=== PATIENT | female | born 1985 | race Asian ===

== ENCOUNTER → 2018-04-01 | Outpatient (CLI) | payer OTHER ==
[2018-04-01 21:08] LABS: THYROID STIMULATING HORMONE 0.765 uIU/ML (0.358-3.740)
[2018-04-01 21:08] LABS: FREE T4 0.99 NG/DL (0.76-1.46); PROLACTIN 7.8 NG/ML
== END ==
LOC: M WUC 16:15
DX: N92.0 Excessive and frequent menstruation with regular cycle (principal)
CPT/HCPCS: 84146

== ENCOUNTER → 2019-06-17 | Outpatient (CLI) | payer BC ==
[~2019-06-17] MED LIST: ISOVUE-370 76% 100ML VIAL (Q9967) As Ordered ONE
--- NOTE | 2019-06-17 14:14 | REP ---
Hysterosalpingogram: History: Infertility. Procedure: The endometrium is cannulated and contrast was injected by the referring boring machine operator horizontal. Fluoroscopic spot filming and fluoroscopy are provided. 0.2 minutes of fluoroscopy time was utilized. Findings: Endometrial cavity is unremarkable. Prompt symmetric filling of the isthmic and ampullary segments of the fallopian tubes are observed bilaterally. There is bilateral peritoneal spillage. Impression: Normal hysterosalpingogram. Bilateral tubal patency is documented. Electronically Signed by Madan Payne MD 06/17/2019 05:54 P
== END ==
LOC: M RADPRO 12:17
PROVIDERS: ATTEND Obstetrics & Gynecology
DX: N97.9 Female infertility, unspecified (principal)
CPT/HCPCS: 58340; 74740; Q9967

== ENCOUNTER → 2020-02-15 | Outpatient (CLI) | payer BC | LOC: M WUC 08:04 | PROVIDERS: ATTEND Obstetrics & Gynecology | DX: N97.0 Female infertility associated with anovulation (principal) ==

== ENCOUNTER → 2020-03-29 | Outpatient (CLI) | payer BC | LOC: M PLALAB 09:28 | PROVIDERS: ATTEND Specialist | DX: O20.0 Threatened abortion (principal) ==

== ENCOUNTER → 2020-03-31 | Outpatient (CLI) | payer BC | LOC: M PLALAB 08:30 | PROVIDERS: ATTEND Specialist | DX: Z32.00 Encounter for pregnancy test, result unknown (principal) ==

== ENCOUNTER → 2020-04-08 | Outpatient (CLI) | payer BC ==
--- NOTE | 2020-04-16 15:08 | SLEEPHOME ---
DATE: 04/08/2020 ORDERED BY: Karla Hayes Diagnostic home sleep testing was performed due to concern for the obstructive sleep apnea syndrome in this patient with a history of snoring. For testing, a nocturnal T3 respiratory monitoring device was used. Continuous record was made of pulse, oxygen saturation, air flow, chest and abdominal strain, and body position. Nine hours and 59 minutes of data were reviewed. There was 6 hours and 51 minutes marked as time in bed. During the interval marked time in bed, there were 21 respiratory events identified of 10 seconds in duration or greater for a respiratory event index of 3.1. The events seen were more frequent in the supine posture. They were primarily obstructive hypopneas. Baseline pulse rate 78 beats per minute. Pulse rate ranged 57 to 114. Baseline saturation was 95%. Saturations briefly fell to 87%. Testing was performed in both the supine and non-supine positions. IMPRESSION: Borderline diagnostic home sleep test with respiratory patterning and a respiratory event index of 3.1. RECOMMENDATIONS: Sleep position retraining for avoidance of the supine posture would seem prudent based on these findings. Should the patient experience persistence of symptoms, referral for formal in-laboratory sleep testing may be more sensitive for identifying mild obstructive sleep apnea syndrome. MTDD
== END ==
LOC: M SLEEP HO 11:31
PROVIDERS: ATTEND Nurse Practitioner Family
DX: R06.83 Snoring (principal)

== ENCOUNTER → 2020-04-14 | Outpatient (CLI) | payer BC | LOC: M PLALAB 10:52 | PROVIDERS: ATTEND Specialist | DX: Z34.82 Encounter for supervision of other normal pregnancy, second trimester (principal) ==

== ENCOUNTER → 2020-04-20 | Outpatient (CLI) | payer BC | LOC: M PLALAB 14:33 | PROVIDERS: ATTEND Specialist | DX: Z34.01 Encounter for supervision of normal first pregnancy, first trimester (principal); Z3A.00 Weeks of gestation of pregnancy not specified ==

== ENCOUNTER → 2020-05-18 | Outpatient (REF) | payer BC | LOC: M PLALAB 08:37 | PROVIDERS: ATTEND Advanced Practice Midwife | DX: O99.211 Obesity complicating pregnancy, first trimester (principal) ==

== ENCOUNTER → 2020-05-25 | Outpatient (CLI) | payer BC | LOC: M LAB 08:03 | PROVIDERS: ATTEND Advanced Practice Midwife | DX: O99.810 Abnormal glucose complicating pregnancy (principal) ==

== ENCOUNTER → 2020-06-29 | Outpatient (CLI) | payer BC ==
--- NOTE | 2020-06-29 10:21 | REP ---
INDICATION: ANATOMY COMPARISON: None. TECHNIQUE: Transabdominal obstetrical ultrasound with color Doppler evaluation. FINDINGS: Examination demonstrates a single live intrauterine in transverse presentation. motion is identified by technologist. Placenta is noted posterior and grade 1 without evidence for placenta previa or abruption. Amniotic fluid volume is normal. Cervix measures 3.1 cm in length and appears closed.. Gestational age by LMP 19 weeks 2 days with BHAVYA 11/21/2020. Gestational age by current measurements 20 weeks 1 day with BHAVYA 11/15/2020. FHR equals 143 beats per minute. BPD: 4.7 cm 20 weeks 2 days HC: 17.7 cm 20 weeks 1 day AC: 14.2 cm 19 weeks 4 days FL: 3.3 cm 20 weeks 2 days HL: 3.2 cm 20 weeks 6 days HC/AC: 1.24 Estimated weight 323 grams (82ndpercentile). Anatomical assessment demonstrates normal cranium, cerebral ventricles, cerebellum/posterior fossa, cisterna magna, facial features, diaphragm/stomach, abdominal wall, kidneys/bladder, spine, extremities and three-vessel cord. 3 mm choroid plexus cyst identified. Incomplete evaluation of the heart and ventricular outflow tracts noted. IMPRESSION: Single live intrauterine in transverse lie demonstrating appropriate estimated weight and growth. Anatomical limitations as noted above warrant re-evaluation and follow-up. <Electronically signed by Hima Al > 06/29/20 [id number]
== END ==
LOC: M WHC 08:44
PROVIDERS: ATTEND Advanced Practice Midwife
DX: Z3A.16 16 weeks gestation of pregnancy (principal); Z34.82 Encounter for supervision of other normal pregnancy, second trimester

== ENCOUNTER → 2020-07-20 | Outpatient (CLI) | payer BC ==
--- NOTE | 2020-07-20 09:51 | REP ---
INDICATION: F/U ANATOMY. COMPARISON: Obstetric ultrasound dated 06/29/2020. TECHNIQUE: Transabdominal ultrasound of the gravid uterus. FINDINGS: On the prior study there was a 3 mm choroid plexus cyst. Additionally, the four-chamber view of the heart and the cardiac right and left ventricular outflow tracts could not be optimally demonstrated. On the study today there is a single intrauterine gestation in the breech presentation. The placenta is posterior with grade 0 maturity. There is no placenta previa. There is a three-vessel umbilical cord. The cervix measures 3.5 cm length. heart rate is 144 beats per minute. The amniotic fluid volume subjectively is normal. Gestational age by the ultrasound today is 22 weeks 2 days. The BHAVYA is 11/21/2020. Gestational age by the 1st ultrasound is 22 weeks 2 days with an BHAVYA of 11/21/2020. Gestational age by LMP is 22 weeks 2 days with an BHAVYA of 11/21/2020. weight is 4- 7 g, 1 lb-1 oz. This is the 40th percentile for 22 weeks 2 days. The four-chamber view of the heart is adequately demonstrated and is unremarkable today. The left ventricular cardiac outflow tract is adequately demonstrated and unremarkable today. The right ventricular cardiac outflow tract again could not be optimally demonstrated. There are no images of the choroid plexus on the study today. The remainder of the anatomy was previously unremarkable and is not repeated. IMPRESSION: Four-chamber view of the heart and left ventricular cardiac outflow tracts are adequately demonstrated and unremarkable. The cardiac right ventricular outflow tract and choroid plexus are not optimally demonstrated today. Follow-up study of these structures might be considered. <Electronically signed by Vamshi Mccormick > 07/20/20 [id number]
== END ==
LOC: M WHC 06:31
PROVIDERS: ATTEND Obstetrics & Gynecology
DX: O99.212 Obesity complicating pregnancy, second trimester (principal); Z3A.22 22 weeks gestation of pregnancy

== ENCOUNTER → 2020-08-24 | Outpatient (CLI) | payer BC ==
[2020-08-24 07:32] LABS: HEMATOCRIT 38.3 % (36.0-47.0); HEMOGLOBIN 12.2 g/dl (12.0-15.5); MEAN CORPUSCULAR HEMOGLOBIN 28.2 pg (27.0-33.0); MEAN CORPUSCULAR HGB CONC 31.9 g/dl (32.0-36.5); MEAN CORPUSCULAR VOLUME 88.7 fl (80.0-96.0); PLATELET COUNT, AUTOMATED 261 10^3/uL (150-450); RED BLOOD COUNT 4.32 10^6/uL (4.00-5.40); WHITE BLOOD COUNT 8.4 10^3/uL (4.0-10.0)
== END ==
LOC: M LAB 06:46
PROVIDERS: ATTEND Advanced Practice Midwife
DX: O99.212 Obesity complicating pregnancy, second trimester (principal)

== ENCOUNTER → 2020-08-30 | Outpatient (CLI) | payer BC ==
--- NOTE | 2020-08-30 08:24 | REP ---
INDICATION: F/U ANATOMY COMPARISON: None. TECHNIQUE: Transabdominal obstetrical ultrasound with color Doppler evaluation. FINDINGS: Examination demonstrates a single live intrauterine in cephalic presentation. motion is identified by technologist. Placenta is noted posterior and grade 1 without evidence for placenta previa or abruption. Amniotic fluid volume is normal. Cervix measures 3.1 cm in length and appears closed.. Gestational age by LMP 28 weeks 1 day with BHAVYA 11/21/2020. Gestational age by current measurements 29 weeks 0 days with BHAVYA 11/15/2020. FHR equals 161 beats per minute. NADINE: 12.4 cm Estimated weight 1293 grams (66thpercentile). Anatomical assessment demonstrates normal structures including cranium, choroid plexus, facial profile, right cardiac ventricular outflow tract, stomach, kidneys/bladder, and three-vessel cord. IMPRESSION: Single live intrauterine in cephalic presentation demonstrating appropriate estimated weight and growth. In conjunction with prior examination anatomical assessment is complete and normal. No obvious choroid plexus cyst identified on current exam. <Electronically signed by Hima Al > 08/30/20 [id number]
== END ==
LOC: M WHC 07:02
PROVIDERS: ATTEND Advanced Practice Midwife
DX: O99.212 Obesity complicating pregnancy, second trimester (principal); E66.9 Obesity, unspecified; Z3A.28 28 weeks gestation of pregnancy

== ENCOUNTER → 2020-09-30 | Outpatient (CLI) | payer BC ==
--- NOTE | 2020-09-30 10:47 | REP ---
INDICATION: GESTATIONAL DIABETES,GROWTH. COMPARISON: 08/30/2020. TECHNIQUE: Real-time sonographic evaluation of the gravid uterus performed. FINDINGS: Estimated gestational age is32 weeks 4 days, EDC 11/21/2020. Today's measurements indicate appropriate growth. Presentation: Cephalic Placenta posterior, grade 2, without evidence of placenta previa. heart rate is recorded at 156 beats per minute. Amniotic fluid is subjectively normal. NADINE 12.2, normal range 8.4-24.4. Closed cervical length is measured at 3.4 cm. Biometry chart: BPD: 81 mm, 32 weeks 4 days, 50th percentile. HC: 295 mm, 32 weeks 4 days, 50th percentile AC: 284 mm, 32 weeks 3 days, 48th percentile Femur length: 64 mm, 33 weeks 0 days, 57th percentile HC to AC ratio: 1.04, normal range 0.95-1.14. Estimated weight: 2020g, 42nd percentile. The stomach, kidneys, bladder, spine and three-vessel cord are visualized and are grossly unremarkable. IMPRESSION: Viable single intrauterine gestation as above. <Electronically signed by Vamshi Alcantar > 09/30/20 [id number]
== END ==
LOC: M WHC 08:17
PROVIDERS: ATTEND Advanced Practice Midwife
DX: O24.415 Gestational diabetes mellitus in pregnancy, controlled by oral hypoglycemic drugs (principal); Z3A.32 32 weeks gestation of pregnancy

== ENCOUNTER → 2020-10-21 | Outpatient (REF) | payer BC | LOC: M SFHCWAGY 16:48 | PROVIDERS: ATTEND Advanced Practice Midwife | DX: O99.213 Obesity complicating pregnancy, third trimester (principal) ==

== ENCOUNTER → 2020-10-28 | Outpatient (CLI) | payer BC ==
--- NOTE | 2020-10-28 08:46 | REP ---
INDICATION: GESTATIONAL DIABETES,GROWTH. Expected gestational age based on known BHAVYA November 21, 2020 36 weeks 4 days. COMPARISON: Comparison study September 30, 2020.. TECHNIQUE: Transabdominal obstetric sonography. FINDINGS: Scanning through the gravid uterus demonstrates a viable single intrauterine gestation in cephalic lie. motion is observed and heart rate is recorded at 140 beats per minute. A posterior placenta is seen, grade 2, without evidence of placenta previa. Closed cervical length is measured at 3.7 cm transabdominally. No extrauterine abnormality is observed. Amniotic fluid is subjectively normal. NADINE normal 10.1 cm.. Biometry chart: BPD 8.8 cm, 35 weeks 5 days Head circumference 31.7 cm, 35 weeks 4 days Abdominal circumference 33.7 cm, 37 weeks 4 days Femur length 7.0 cm, 36 weeks 0 days Humeral length 6.2 cm, 35 weeks 6 days HC AC ratio normal 0.94 Cephalic index normal 0.79 Estimated weight 3000 at 31 g, 6 lb 10 oz, 59th percentile for 36 weeks 4 days IMPRESSION: Viable single intrauterine gestation at 36 weeks 1 days by today's composite sonographic criteria. BHAVYA by today's sonography BHAVYA by today's sonography November 24, 2020.. No complication identified. Expected gestational age estimate based on prior sonography 36 weeks 4 days. BHAVYA by prior sonography November 21, 2020. Appropriate interval growth. <Electronically signed by Troy Payne > 10/28/20 [id number]
== END ==
LOC: M WHC 06:20
PROVIDERS: ATTEND Advanced Practice Midwife
DX: O24.415 Gestational diabetes mellitus in pregnancy, controlled by oral hypoglycemic drugs (principal); Z79.84 Long term (current) use of oral hypoglycemic drugs; Z3A.36 36 weeks gestation of pregnancy

== ENCOUNTER 2020-11-04 12:59 | Outpatient (CLI) | payer BC ==
[~2020-11-04] VITALS: Ht 157.5 cm; Wt 102.6 kg
[2020-11-04 13:19] VITALS: BP 131/83
[2020-11-04] MEDS ORDERED: METF850T4 PO (13:34)
[2020-11-04] MEDS ORDERED: PRENTAB9 PO (13:35)
[2020-11-04] MEDS ORDERED: VITMTA PO (13:36)
--- NOTE | 2020-11-04 14:58 | IPNPDOC ---
Text Note Date of Service The patient was seen on 11/04/20. NOTE Triage Note Selina is a 35yo with SIUP at 37w4d presenting from clinic for isolated FHR decel on routine NST done for A2GDM (takes metformin). /PMhx also significant for PCOS and obesity. She feels well today, no complaints. Robust movement. No regular ctx/LOF/vaginal bleeding. Vitals wnl, afebrile Gen: WDWN, resting comfortably in bed Abdomen: soft, gravid, NTTP Cat I FHRT with bl 125, +accels, -decels, mod renato for over 1 hour [place]: no regular ctx TAUS: SIUP with cephalic presentation, posterior placenta, MVP 6.4cm, +FCA and +FM Assessment: Selina is a 35yo with SIUP at 37w4d having isolated FHR decel on routine testing today with NO recurrence on 1 hour of monitoring. MVP 6.4cm. Vitals wnl. Plan: -Safe for discharge home -Patient has IOL scheduled Wednesday 11/08 -Discussed return precautions Robyn Banks MD VS,Alec, I+O VSAlec I+O Vital Signs Date Time Temp Pulse Resp B/P (MAP) Pulse Ox O2 Delivery O2 Flow Rate FiO2 11/04/20 13:19 93 131/83 (99) 11/04/20 13:18 97.8 18 Robyn Banks MD Nov 04, 2020 14:58
== END 2020-11-04 15:00 | disposition home or self-care (01) ==
LOC: M LDO 12:59
PROVIDERS: ATTEND Obstetrics & Gynecology
DX: O26.893 Other specified pregnancy related conditions, third trimester (principal); Z3A.37 37 weeks gestation of pregnancy
CPT/HCPCS: 59025; 76815; G0378; G0463

== ENCOUNTER 2020-11-08 13:30 | Inpatient (IN) | payer BC ==
[~2020-11-08] VITALS: Ht 157.5 cm; Wt 102.0 kg
[2020-11-08] VITALS (9 sets, daily range): BP systolic 123–140; BP diastolic 75–88
[~2020-11-08 13:30] MED LIST changes: -ISOVUE-370 76% 100ML VIAL (Q9967) As Ordered ONE; +METF850T4 PO; +PRENTAB9 PO; +VITMTA PO
[2020-11-08] MEDS ORDERED: LIDOCAINE 1% MDV 20ML VIAL INFIL PRN (14:55)
[2020-11-08] MEDS ORDERED: CARBOPROST TROMETHAMINE 250 MCG/ML AMP IM PRN (14:55)
[2020-11-08] MEDS ORDERED: TRANEXAMIC ACID INJection 1,000 MG in NS 100 ML IV PRN (14:55)
[2020-11-08] MEDS ORDERED: METHYLERGONOVINE MALEATE 0.2 MG/ML VIAL (J2210) IM PRN (14:55)
[2020-11-08] MEDS ORDERED: OXYTOCIN DRIP 30 UNITS in IV 1 EA IV PRN (14:55)
[2020-11-08 14:56] LABS: HEMATOCRIT 38.6 % (36.0-47.0); HEMOGLOBIN 13.1 g/dl (12.0-15.5); MEAN CORPUSCULAR HEMOGLOBIN 29.8 pg (27.0-33.0); MEAN CORPUSCULAR HGB CONC 33.9 g/dl (32.0-36.5); MEAN CORPUSCULAR VOLUME 87.7 fl (80.0-96.0); PLATELET COUNT, AUTOMATED 227 10^3/uL (150-450); WHITE BLOOD COUNT 8.3 10^3/uL (4.0-10.0)
[2020-11-08] MEDS ORDERED: miSOPROStol 50MCG 1/2 TABLET PO ONE ×2 (15:25→19:45)
[2020-11-08] MEDS ORDERED: OXYTOCIN DRIP 30 UNITS in IV 1 EA IV SCH (21:15)
[2020-11-09] VITALS (49 sets, daily range): BP systolic 102–159; BP diastolic 56–96
[2020-11-09] MEDS: LR 1,000 ML IV SCH ×5 (06:40→21:34)
[2020-11-09 08:21] LABS: HEMATOCRIT 40.8 % (36.0-47.0); HEMOGLOBIN 13.6 g/dl (12.0-15.5); MEAN CORPUSCULAR HEMOGLOBIN 29.1 pg (27.0-33.0); MEAN CORPUSCULAR HGB CONC 33.3 g/dl (32.0-36.5); MEAN CORPUSCULAR VOLUME 87.4 fl (80.0-96.0); PLATELET COUNT, AUTOMATED 208 10^3/uL (150-450); RED BLOOD COUNT 4.67 10^6/uL (4.00-5.40); WHITE BLOOD COUNT 11.9 10^3/uL (4.0-10.0)
[2020-11-09 08:48] LABS: ALBUMIN 2.7 GM/DL (3.2-5.2); ALT/SGPT 15 U/L (12-78); BILIRUBIN,TOTAL 0.2 MG/DL (0.2-1.0); BLOOD UREA NITROGEN 9 MG/DL (7-18); CALCIUM LEVEL 8.7 MG/DL (8.5-10.1); CARBON DIOXIDE LEVEL 24 MEQ/L (21-32); CHLORIDE LEVEL 107 MEQ/L (98-107); GLOMERULAR FILTRATION RATE > 60.0 (>60); GLUCOSE, FASTING 87 MG/DL (70-100); POTASSIUM SERUM 4.3 MEQ/L (3.5-5.1); SODIUM LEVEL 137 MEQ/L (136-145); TOTAL PROTEIN 5.7 GM/DL (6.4-8.2)
[2020-11-09] MEDS ORDERED: BUTORPHANOL 2 MG/ML INJ (J0595) IV PRN (08:50)
[2020-11-09] MEDS ORDERED: PROMETHAZINE INJ 25 MG/ML VIAL (J2550) IV ONE (09:00)
--- NOTE | 2020-11-09 09:02 | HPE ---
HISTORY AND PHYSICAL DATE OF ADMISSION: 11/08/2020 HISTORY OF PRESENT ILLNESS: Selina is a 35-year-old 1 para 0 at 38 and 1/7th weeks gestation, EDC of 11/21/20 based on first trimester ultrasound. Presents to Labor and Delivery today for induction of labor due to A2 gestational diabetes. She denies regular painful contractions, vaginal bleeding and leakage of fluid. The fetus has been active. care was initiated at [facility] in the first trimester. The course was complicated by obesity, A2 gestational diabetes and polycystic ovarian syndrome. OBSTETRIC HISTORY: Primigravida. OBSTETRIC LABS: A positive, antibody screen negative, rubella immune, HIV negative, RPR nonreactive, hepatitis B surface antigen negative, hepatitis C antibody negative. Urine culture: No growth. Gonorrhea and chlamydia negative. She underwent an early gestational diabetic screening on May 18, 2020 with an abnormal result of 133. She did undergo a three hour glucose tolerance test at that time and it was normal. Her repeat glucose tolerance test on 08/24/20 was abnormal. Fasting 88, 1 hour 184, 2 hour 161, 3 hour 62 and her GBS is negative. PAST MEDICAL HISTORY: Childhood varicella, polycystic ovarian syndrome. PAST SURGICAL HISTORY: None. FAMILY HISTORY: Prostate cancer, hypertension, cerebrovascular accident, myocardial infarction and hypertension. SOCIAL HISTORY: The patient works as a registered nurse. The father of the baby is at bedside and he is supportive. She is a nonsmoker. She denies alcohol and drug use. No history of any sexually transmitted infections. She denies a history of abuse, physical, sexual and emotional. ALLERGIES: No known drug allergies. CURRENT MEDICATIONS: 1. vitamin. 2. Metformin 850 mg daily in the a.m. OBJECTIVE: Temperature 98.5, pulse 92, respirations 18, BP 136/81. heart rate is 140 with moderate variability, positive accelerations, negative decelerations. There is no pattern of contractions. Her abdomen is gravid, cephalic presentation. Estimated weight 3200 grams. Sterile vaginal exam: 1.5 cm dilated, 75% effaced, ballottable station. ASSESSMENT: Intrauterine at 38 and 1/7th weeks. heart rate is Category 1, A2 gestational diabetes. PLAN: Admit the patient to Labor and Delivery, routine laboratories, out of bed ad karla, regular diet at this time, consistent carbohydrates, will start with Misoprostol 50 mcg p.o. x1. Will reassess following that time. Will likely start IV Pitocin for labor induction. The patient is considering an epidural for her labor when he is uncomfortable. I reviewed risks, benefits and alternatives. She and her partner's questions have all been answered. She has been verbally consented for emergency surgery and blood products if they are necessary. I do anticipate cervical ripening and an active labor.
--- NOTE | 2020-11-09 10:15 | IPNPDOC ---
Text Note Date of Service The patient was seen on 11/09/20. NOTE Intrapartum Note Selina is a 35yo with SIUP at 38w2d undergoing IOL for A2GDM on metformin. PNC/PMhx otherwise only significant for obesity and PCOS. I assumed care of her at 0730 this morning. She had cervical ripening with cytotec and pitocin was started at midnight last night. She had AROM this morning by covering CNM when 3cm dilated, clear fluid noted. Pitocin has been at 18mu. This morning she had a few mild range bp's so CBC repeated and CMP done which were unchanged/normal. She recently received stadol/phenergan IV for increasing discomfort and also recently started to develop a Cat II FHRT with recurrent FHR decels. I was asked to evaluate patient for internal monitors to determine timing of FHR decels with ctx. SCE 5/80/-2. IUPC and FSE were placed and then a FHR decel occurred down to 60's that recovered with repositioning. However, there continues to be early FHR decels down to 100's/90's. I asked the nurse to call anesthesia team to make them aware that we may need to proceed to OR if there is a recurrent prolonged FHR decel I discussed with the patient and her the situation. Hopefully if there is indication for section in the future, she could have regional anesthesia to avoid need for general, but will depend on status. Will continue to closely monitor. MD ANDRE Spain,Alec, I+O VSAlec I+O Laboratory Tests 11/08/20 14:40 11/09/20 08:08 Vital Signs Date Time Temp Pulse Resp B/P (MAP) Pulse Ox O2 Delivery O2 Flow Rate FiO2 11/09/20 09:27 20 Room Air 11/09/20 07:41 69 154/96 (115) 11/09/20 07:13 97.5 11/08/20 13:45 97 Robyn Banks MD Nov 09, 2020 10:15
[2020-11-09] MEDS ORDERED: FENTANYL 2MCG/ML ROPIVACAINE 0.2% IN 0.9% NACL 100ML IVBAG As Ordered ONE (12:33)
[2020-11-09] MEDS ORDERED: ePHEDrine SULFATE 25 MG/5 ML(5MG/ML) SYRINGE As Ordered ONE (14:20)
[2020-11-09] MEDS ORDERED: diphenhydrAMINE 50MG/ML VIAL (J1200) IV PRN ×3 (14:25→17:40)
[2020-11-09] MEDS ORDERED: LACTATED RINGER'S 1000 ML IV PRN (14:25)
[2020-11-09] MEDS ORDERED: NALOXONE INJ 0.4MG/1ML VIAL (J2310 PER 1MG) IV PRN ×3 (14:25→16:00)
[2020-11-09] MEDS ORDERED: ONDANSETRON 4MG/2ML VIAL IV PRN ×4 (14:25→17:40)
[2020-11-09] MEDS ORDERED: REFRIGERATOR IV KEYS XX PRN (14:25)
[2020-11-09] MEDS ORDERED: EPIDURAL/PCA KEYS XX PRN (14:25)
[2020-11-09] MEDS ORDERED: EPIDURAL COMMENT XX SCH (14:25)
[2020-11-09] MEDS: ePHEDrine SULFATE 25 MG/5 ML(5MG/ML) SYRINGE IV PRN ×3 (14:29→14:47)
[2020-11-09] MEDS: FENTANYL/ROPIVACAINE/NACL BAG 100 ML EPIDURAL SCH (14:31)
[2020-11-09] MEDS ORDERED: BICITRA 30ML SOLN UDC As Ordered ONE (15:10)
[2020-11-09] MEDS ORDERED: ceFAZolin 2 GM/D5W 50 ML IV BAG (J0690 PER 500MG) As Ordered ONE (15:11)
[2020-11-09] MEDS ORDERED: BICITRA 30ML SOLN UDC PO ONE (15:15)
[2020-11-09] MEDS ORDERED: ceFAZolin SOD 2 GM in IV 1 EA IV ONE (15:15)
[2020-11-09] MEDS ORDERED: AZITHROMYCIN INJ 500 MG, VIAL MATE ADAPTER 1 EACH in NS 250 ML IV ONE (15:15)
[2020-11-09] MEDS ORDERED: MORPHINE PRES-FREE INJ 10 MG/10 ML VIAL (J2274) As Ordered ONE (15:19)
--- NOTE | 2020-11-09 15:19 | IPNPDOC ---
Text Note Date of Service The patient was seen on 11/09/20. NOTE Decision for section Patient comfortable with epidural. Pitocin was turned off earlier for difficulty monitoring during epidural administration and since that time patient has had continued contractions that have spaced out, but occuring now with them are late decelerations. Variability is overall moderate and there are accelerations, but given that patient's cervix is still 6/80/-2 with no further progress in labor and she has a Cat II FHRT, I have counseled her regarding dx of NRFHT remote from delivery and she is accepting of plan for PLTCS. We discussed all r/b/a in detail and signed consent form for PLTCS and blood transfusion. Will proceed to OR when team is ready Azithromycin 500mg IV x1 and Anceph 2g IV x1 for prophylaxis Bicitra Consent forms placed in chart Robyn Banks MD VS,Alec, I+O VSAlec I+O Laboratory Tests 11/09/20 08:08 Vital Signs Date Time Temp Pulse Resp B/P (MAP) Pulse Ox O2 Delivery O2 Flow Rate FiO2 11/09/20 13:39 96 18 112/66 (81) 11/09/20 11:28 100 Room Air 11/09/20 10:49 97.7 Robyn Banks MD Nov 09, 2020 15:19
[2020-11-09] MEDS ORDERED: OXYTOCIN 30 UNITS IN 0.9% NaCl 500ML IV BAG (J2590) As Ordered ONE ×2 (15:20→16:59)
[2020-11-09] MEDS ORDERED: SODIUM BICARBONATE 8.4% INJ 50MEQ 50 ML VIAL As Ordered ONE (15:22)
[2020-11-09] MEDS ORDERED: LIDOCAINE 2% W/EPINEPHRINE 20ML VIAL **PRES FREE As Ordered ONE (15:22)
[2020-11-09] MEDS ORDERED: ONDANSETRON 4MG/2ML VIAL As Ordered ONE (15:43)
[2020-11-09] MEDS ORDERED: KETOROLAC 60MG 2ML VIAL As Ordered ONE (15:43)
[2020-11-09] MEDS ORDERED: dexameTHASONE 4 MG/ML 1ML VIAL (J1100 PER 1MG) As Ordered ONE (15:43)
[2020-11-09] MEDS ORDERED: METHYLERGONOVINE MALEATE 0.2 MG/ML VIAL (J2210) IM PRN (15:55)
[2020-11-09] MEDS ORDERED: OXYTOCIN DRIP 30 UNITS in IV 1 EA IV PRN (15:55)
[2020-11-09] MEDS ORDERED: CARBOPROST TROMETHAMINE 250 MCG/ML AMP IM PRN (15:55)
[2020-11-09] MEDS ORDERED: METOCLOPRAMIDE INJ 10MG/2ML VIAL (J2765 PER 1) IV PRN ×2 (16:00→17:40)
[2020-11-09] MEDS ORDERED: NALBUPHINE HCL 10 MG/ML AMP (J2300) IV PRN ×2 (16:00→17:40)
[2020-11-09] MEDS ORDERED: TRANEXAMIC ACID INJection 1,000 MG in NS 100 ML IV PRN (16:00)
[2020-11-09 16:07] LABS: CORD GAS ABE A -6.9; CORD GAS HCO3 A 20.3 MEQ/L; CORD GAS PCO2 A 46.6 mmHg; CORD GAS PH A 7.256 UNITS; CORD GAS PO2 A 12.8 mmHg; CORD GAS SBC A 17.3 MEQ/L; CORD GAS TCO2 A 21.7 MEQ/L
[2020-11-09 16:10] LABS: CORD GAS ABE V -4.7; CORD GAS HCO3 V 20.4 MEQ/L; CORD GAS O2 SAT V 72.9 %; CORD GAS PCO2 V 37.8 mmHg; CORD GAS PH V 7.349 UNITS; CORD GAS PO2 V 29.6 mmHg; CORD GAS SBC V 20.1 MEQ/L; CORD GAS TCO2 V 21.5 MEQ/L
[2020-11-09] MEDS ORDERED: OXYTOCIN DRIP 30 UNITS in IV 1 EA IV SCH (17:09)
[2020-11-09] MEDS ORDERED: MEASLES,MUMPS,RUBELLA VACCINE INJ (MMR-II) (90707) SC SCH (17:10)
[2020-11-09] MEDS ORDERED: RHOGAM 300 MCG (1500 IU) INJ (J2790) IM SCH (17:10)
[2020-11-09] MEDS ORDERED: SIMETHICONE 80MG CHEW TAB PO PRN (17:10)
[2020-11-09] MEDS ORDERED: PERCOCET 5MG/325MG TAB PO PRN ×3 (17:10→17:40)
[2020-11-09] MEDS ORDERED: MEPERIDINE INJ 25 MG/ML VIAL (J2175) IV PRN (17:40)
[2020-11-09] MEDS ORDERED: NORCO, ANEXSIA 5/325MG TABLET (HYDROcodone/ACETAMINOPHEN) PO PRN (17:40)
[2020-11-09] MEDS ORDERED: PROMETHAZINE INJ 25 MG/ML VIAL (J2550) IV PRN (17:40)
[2020-11-09] MEDS ORDERED: HYDROMORPHONE HCL 0.5 MG/ 0.5 ML SYRINGE (J1170 PER 1) IV PRN (17:40)
[2020-11-09] MEDS ORDERED: LR 1,000 ML IV SCH (17:40)
[2020-11-09] MEDS ORDERED: oxyCODONE 5MG TAB PO PRN (17:40)
[2020-11-09] MEDS ORDERED: MORPHINE 2 MG/ML 1ML VIAL (J2270) IV PRN (17:40)
[2020-11-09] MEDS ORDERED: fentaNYL 100 MCG/2 ML INJECTION (J3010) IV PRN (17:40)
[2020-11-09] MEDS ORDERED: KETOROLAC 30 MG/ML 1ML VIAL IV PRN (17:40)
[2020-11-09] MEDS: DOCUSATE SODIUM 100MG CAPSULE PO SCH (21:00)
--- NOTE | 2020-11-09 21:40 | RO ---
OPERATIVE NOTE DATE OF OPERATION: 11/09/2020 PREOPERATIVE DIAGNOSIS: 1. Induction of labor secondary to A2 GDM on metformin. 2. Obesity, BMI of 37. 3. PCOS. 4. Nonreassuring heart tracing, remote from delivery. POSTOPERATIVE DIAGNOSIS: 1. Induction of labor secondary to A2 GDM on metformin. 2. Obesity, BMI of 37. 3. PCOS. 4. Nonreassuring heart tracing, remote from delivery. PROCEDURE: Primary low transverse section. SURGEON: Robyn Banks MD RESIDENTIAL SUBSTANCE ABUSE COUNSELOR: technology specialist, Kori Ramos ANESTHESIA: epidural INDICATION FOR OPERATION: Selina is a 35-year-old, G1, now P 1-0-0-1, who was admitted at 38 weeks for an induction of labor secondary to A2 GDM, treated with metformin. She underwent induction and augmentation first with Cytotec, then with Pitocin and had AROM. However, she developed a persistent category 2 heart rate tracing remote from delivery at 6cm dilation. MATERIAL FORWARDED TO THE LAB FOR EXAMINATION: Placenta and cord gases, pH arterial 7.256, base excess negative 6.9, venous pH 7.349, base excess negative 4.7. DESCRIPTION OF FINDINGS: Female in cephalic presentation, Apgars 7 and 9, weight 2910 gm or 6 lb, 7 oz. Normal appearing uterus, fallopian tubes and ovaries. INFECTION CLASSIFICATION: 2. ESTIMATED BLOOD LOSS: 700 mL URINE OUTPUT: 150 mL of yellow clear urine. IV FLUIDS: 650 mL of lactated Ringer's. DESCRIPTION OF PROCEDURE: After obtaining informed consent, the patient was taken to the operating room. She had received an epidural previously. Lucero catheter was already in place. Bilateral sequential compression devices were placed. She was prepped and draped in normal sterile fashion in the dorsal supine position with a left lateral tilt. She received 500 mg of IV azithromycin and 2 grams of IV Ancef prophylactically. A timeout was performed to confirm patient name, date of , procedure and indications and the team was in agreement. Epidural anesthesia was found to be adequate using an Allis clamp. A Pfannenstiel skin incision was made with the scalpel and carried through to the underlying layer of fascia. The fascia was incised in the midline and the incision was extended laterally with Tovar scissors. Superior and inferior aspects of the fascial incision were grasped with Katty clamps, elevated and the underlying rectus muscles were dissected off bluntly and sharply. The peritoneum was entered digitally and the rectus muscles were in the midline. The peritoneal incision was extended superiorly and inferiorly with good visualization of the bladder. Mobius retractor was then inserted. Vesicouterine peritoneum was identified, grasped with pickups and entered sharply with the Metzenbaum scissors. The incision was extended laterally and the bladder flap created digitally. The lower uterine segment was then scored in a transverse fashion with a scalpel. The uterus was entered bluntly and the incision was extended with traction with clear fluid noted. The 's head was elevated at the level of the incision. Fundal pressure was applied. The head was delivered atraumatically in the OA position. Anterior shoulder, posterior shoulder and corpus were delivered without difficulty. The nose and mouth were suctioned with bulb suction. Cord was clamped x2 and cut. Infant was handed off to the awaiting nursing team. Cord gases were obtained. The placenta was removed with uterine massage and traction on the umbilical cord and the uterus was left in situ and cleared of all clot and debris. The uterine incision was repaired with 0 Vicryl suture in a running locking fashion. A second layer of 0 Monocryl was used to close the hysterotomy incision in an imbricating fashion. The uterine incision was inspected. Hemostasis was noted. The gutters were investigated and noted to have no pooling of blood or clots. The peritoneum was then closed after removal of the Mobius retractor. 3-0 Vicryl suture was used in a running fashion. The rectus muscles were reapproximated using [id number] stitches using 3-0 Vicryl suture. The fascia was then reapproximated with 0 Vicryl suture in a running fashion. The subcutaneous tissue was copiously irrigated. Kasey's fascia was reapproximated using 3-0 Vicryl suture in a running fashion in two layers given the amount of adipose tissue and then the skin edges were reapproximated using three inverted interrupted stitches using 3-0 Vicryl suture followed by a running subcuticular stitch using 4-0 Monocryl suture. The incision was cleaned using a wet lap, dried with a dry lap. Steri-Strips were applied in the usual fashion. Optifoam dressing was then placed overlying and finally the vagina was cleared of all blood clot without active bleeding noted. The fundus was firm at U minus 2 cm. All counts were correct x2. The procedure was without complication. The patient tolerated the procedure well. She was taken to the recovery room on labor and delivery in stable condition. EBONY
[2020-11-09] MEDS: KETOROLAC 30 MG/ML 1ML VIAL IV SCH (22:34)
[2020-11-10] MEDS: FENTANYL/ROPIVACAINE/NACL BAG 100 ML EPIDURAL SCH (00:25)
[2020-11-10 02:00] VITALS: BP 130/76
[2020-11-10] MEDS: KETOROLAC 30 MG/ML 1ML VIAL IV SCH ×2 (04:29→10:17)
[2020-11-10] MEDS: LR 1,000 ML IV SCH ×5 (04:59→17:09)
[2020-11-10 06:00] VITALS: BP 125/77
[2020-11-10 07:47] LABS: HEMATOCRIT 34.1 % (36.0-47.0); MEAN CORPUSCULAR HEMOGLOBIN 29.4 pg (27.0-33.0); MEAN CORPUSCULAR HGB CONC 33.1 g/dl (32.0-36.5); MEAN CORPUSCULAR VOLUME 88.8 fl (80.0-96.0); PLATELET COUNT, AUTOMATED 199 10^3/uL (150-450); RED BLOOD COUNT 3.84 10^6/uL (4.00-5.40); WHITE BLOOD COUNT 14.9 10^3/uL (4.0-10.0)
[2020-11-10 07:58] LABS: HEMOGLOBIN 11.3 g/dl (12.0-15.5)
[2020-11-10] MEDS: DOCUSATE SODIUM 100MG CAPSULE PO SCH ×2 (08:26→20:48)
[2020-11-10] MEDS: PRENATAL VITAMINS CHEWABLE TABLET PO SCH (08:26)
--- NOTE | 2020-11-10 08:33 | IPNPDOC ---
Progress Note Date of Service: Nov 10, 2020 Day#: 1 Progress Note PPD1/POD1 SUBJECT: Selina is a 35yo s/p uncomplicated PLTCS at 38wk for NRFHT remote from delivery when undergoing IOL for A2GDM on metformin in the setting of obesity/PCOS, doing well /post-op day #1. She had kim removed this morning and awaiting due to void. She has been ambulating and tolerating re gular diet. Breast feeding without issue. Reports lochia is like a light period. Denies fevers/chills/nausea/vomiting/CP/SOB. OBJECTIVE: VITAL SIGNS: Within normal limits, afebrile. Alert and oriented times three. Abdomen: Fundus firm at U-2. Soft, appropriately tender to palpation, pfannenstiel incision covered by dry/clean/intact optifoam dressing. Some purple bruising noted above the left side of the incision. Extremities: no pain with palpation of calves Labs: pre-op H/H: 13.6/40.8 post-op H/H: 11.3/34.1 ASSESSMENT: Selina is a 35yo s/p uncomplicated PLTCS at 38wk for NRFHT remote from delivery when undergoing IOL for A2GDM on metformin in the setting of obesity/PCOS, doing well /post-op day #1. Vitals within normal limits, afebrile, hemodynamically stable with no evidence of infection. PLAN: 1. Routine /post-op care 2. Motrin and percocet for pain. Colace for bowel regimen. 3. Regular diet 4. Encourage ambulation and hydration as well as breast feeding 5. Due to void this morning Robyn Banks MD VS, I&O, 24H, Alec Vital Signs/I&O Vital Signs Date Time Temp Pulse Resp B/P (MAP) Pulse Ox O2 Delivery O2 Flow Rate FiO2 11/10/20 06:00 98.0 75 16 125/77 (93) 97 Room Air I&O- Last 24 Hours up to 6 AM 11/10/20 06:00 Intake Total 4962.8 ml Output Total 2100 ml Balance 2862.8 ml Laboratory Data 24H LABS Laboratory Tests 2 11/09/20 15:57: Cord Arterial Blood pH 7.256, Cord Arterial Blood PCO2 46.6, Cord Arterial Blood PO2 12.8, Cord Arterial Blood HCO3 20.3, Cord Arterial Blood Total CO2 21.7, Cord Arterial Blood Base Excess -6.9, Cord Arterial Base Excess (Standard 17.3, Cord Arterial Bld Oxygen Saturation 21.0, Cord Venous Blood pH 7.349, Cord Venous Blood PCO2 37.8, Cord Venous Blood PO2 29.6, Cord Venous Blood HCO3 20.4, Cord Venous Blood Total CO2 21.5, Cord Venous Base Excess (Actual) -4.7, Cord Venous Base Excess (Standard) 20.1, Cord Venous Blood Oxygen Saturation 72.9 11/10/20 07:32: Nucleated Red Blood Cells % (auto) 0.0 CBC/BMP Laboratory Tests 11/10/20 07:32 Robyn Banks MD Nov 10, 2020 08:33
[2020-11-10] MEDS ORDERED: PERCOCET PO (08:37)
[2020-11-10] MEDS ORDERED: DOK1CAP7 PO (08:37)
[2020-11-10] MEDS ORDERED: IBUP80TA PO (08:37)
[2020-11-10 10:00] VITALS: BP 121/71
[2020-11-10 14:00] VITALS: BP 120/69
[2020-11-10] MEDS: IBUPROFEN 800 MG TAB PO SCH (17:27)
[2020-11-10 17:55] VITALS: BP 124/84
[2020-11-10 22:00] VITALS: BP 134/82
[2020-11-11] MEDS: IBUPROFEN 800 MG TAB PO SCH ×3 (01:44→17:26)
[2020-11-11 01:52] VITALS: BP 145/90
[2020-11-11 06:00] VITALS: BP 138/88
--- NOTE | 2020-11-11 07:31 | DSES ---
DISCHARGE SUMMARY DATE OF ADMISSION: 11/08/2020 DATE OF DISCHARGE: 11/11/2020 DISCHARGE DIAGNOSIS: Primary section postop day #2, stable condition. HISTORY: Selina is a 35-year-old who underwent primary section due to non-reassuring heart rate. The surgery was uncomplicated. She had an estimated blood loss of 700 ml. She delivered a female weighing 2910 grams, 6 pounds, 7 ounces with Apgars of 7 and 9. She has been out of bed for self-care, jeffy-care and infant care. Her pain has been well-managed with p.o. pain medications. She is requesting discharge home today. She is tolerating p.o. fluids, regular diet, she is voiding without difficulty and passing flatus. OBJECTIVE: Vital signs are stable. Temperature is 97.9, pulse 86, respirations 16, blood pressure is 138/88. She is alert and oriented x3. No apparent distress. Her CBC preoperatively on 11/08/20 with a hemoglobin of 13.1, hematocrit 38.6 and platelets 227,000. Postoperatively, on 11/10/20, hemoglobin 11.3, hematocrit 34.1 and platelets 199,000. Her breasts are soft and nontender, nipples intact. There are no cracks, no bleeding. Abdomen: Fundus firm at umbilicus. Incision with the Optifoam dressing in place, there is no drainage observed. Perineum is intact with lochia rubra scant. Bilateral lower extremities with scant pitting edema. PLAN: Discharge the patient home today. Prescriptions have been e-prescribed to her pharmacy by Dr. Banks for Percocet and Ibuprofen. She is to follow-up at [facility] for a two week incision check and an 8 week visit. Discharge instructions have been reviewed with the patient including breast care, incision care, jeffy-care, pelvic rest, activity and lifting restrictions, danger signs to report to her provider as well as access to care. The patient and her had their questions answered and do desire discharge home.
[2020-11-11] MEDS: DOCUSATE SODIUM 100MG CAPSULE PO SCH (08:35)
[2020-11-11] MEDS: PRENATAL VITAMINS CHEWABLE TABLET PO SCH (08:35)
== END 2020-11-11 17:40 | disposition home or self-care (01) | DRG 540 ==
LOC: M LDI 13:30 → M OBS 11-09 18:16
PROVIDERS: ADMIT Advanced Practice Midwife; ATTEND Advanced Practice Midwife
PROC: 10907ZC Drainage of Amniotic Fluid, Therapeutic from Products of Conception, Via Natural or Artificial Opening (ICD-10-PCS; 2020-11-08)
PROC: 3E033VJ Introduction of Other Hormone into Peripheral Vein, Percutaneous Approach (ICD-10-PCS; 2020-11-08)
PROC: 3E0DXGC Introduction of Other Therapeutic Substance into Mouth and Pharynx, External Approach (ICD-10-PCS; 2020-11-08)
PROC: 10D00Z1 Extraction of Products of Conception, Low, Open Approach (ICD-10-PCS; principal; 2020-11-09 15:15)
DX: O24.425 Gestational diabetes mellitus in childbirth, controlled by oral hypoglycemic drugs (principal); E66.9 Obesity, unspecified; E28.2 Polycystic ovarian syndrome; O99.214 Obesity complicating childbirth; Z37.0 Single live birth; Z3A.38 38 weeks gestation of pregnancy; Z68.37 Body mass index [BMI] 37.0-37.9, adult; O99.284 Endocrine, nutritional and metabolic diseases complicating childbirth; O76 Abnormality in fetal heart rate and rhythm complicating labor and delivery

== ENCOUNTER → 2020-11-23 | Outpatient (REF) | payer BC ==
[~2020-11-23] MED LIST changes: +DOK1CAP7 PO; +IBUP80TA PO; +PERCOCET PO
== END ==
LOC: M PLALAB 10:24
PROVIDERS: ATTEND Obstetrics & Gynecology
DX: Z86.32 Personal history of gestational diabetes (principal); Z53.9 Procedure and treatment not carried out, unspecified reason

== ENCOUNTER → 2020-11-24 | Outpatient (REF) | payer BC | LOC: M PLALAB 18:29 | PROVIDERS: ATTEND Obstetrics & Gynecology | DX: Z86.32 Personal history of gestational diabetes (principal) ==

== ENCOUNTER → 2021-03-11 | Outpatient (CLI) | payer BC | LOC: M LAB 08:09 | PROVIDERS: ATTEND Obstetrics & Gynecology | DX: Z86.32 Personal history of gestational diabetes (principal) ==

== ENCOUNTER → 2021-03-11 | Outpatient (CLI) | payer BC ==
[~2021-03-11] MED LIST changes: +DOK1CAP4 PO; -DOK1CAP7 PO
[2021-03-11 10:18] LABS: HEMOGLOBIN A1c 5.3 %
[2021-03-11 10:42] LABS: ALBUMIN 3.8 GM/DL (3.2-5.2); ALT/SGPT 22 U/L (12-78); BILIRUBIN,TOTAL 0.3 MG/DL (0.2-1.0); BLOOD UREA NITROGEN 12 MG/DL (7-18); CALCIUM LEVEL 8.9 MG/DL (8.5-10.1); CARBON DIOXIDE LEVEL 27 MEQ/L (21-32); CHLORIDE LEVEL 106 MEQ/L (98-107); CREATININE FOR GFR 0.49 MG/DL (0.55-1.30); GLOMERULAR FILTRATION RATE > 60.0 (>60); GLUCOSE, FASTING 88 MG/DL (70-100); POTASSIUM SERUM 4.6 MEQ/L (3.5-5.1); SODIUM LEVEL 138 MEQ/L (136-145); TOTAL PROTEIN 6.7 GM/DL (6.4-8.2)
== END ==
LOC: M LAB 08:12
PROVIDERS: ATTEND Family Medicine
DX: E28.2 Polycystic ovarian syndrome (principal); Z86.32 Personal history of gestational diabetes

== ENCOUNTER → 2022-06-07 | Outpatient (CLI) | payer OTHER | LOC: M WHC 12:05 | PROVIDERS: ATTEND Obstetrics & Gynecology | DX: O35.0 Maternal care for (suspected) central nervous system malformation in fetus (principal); Z3A.19 19 weeks gestation of pregnancy ==

== ENCOUNTER → 2022-07-14 | Outpatient (CLI) | payer OTHER ==
[2022-07-14 10:20] LABS: HEMATOCRIT 38.5 % (36.0-47.0); HEMOGLOBIN 12.8 g/dl (12.0-15.5); MEAN CORPUSCULAR HEMOGLOBIN 29.5 pg (27.0-33.0); MEAN CORPUSCULAR HGB CONC 33.2 g/dl (32.0-36.5); MEAN CORPUSCULAR VOLUME 88.7 fl (80.0-96.0); PLATELET COUNT, AUTOMATED 248 10^3/uL (150-450); RED BLOOD COUNT 4.34 10^6/uL (4.00-5.40)
[2022-07-14 13:18] LABS: GC DNA AMPLIFICATION NEGATIVE (NEGATIVE)
== END ==
LOC: M PLALAB 07:39
PROVIDERS: ATTEND Obstetrics & Gynecology
DX: Z34.92 Encounter for supervision of normal pregnancy, unspecified, second trimester (principal)

== ENCOUNTER → 2022-07-21 | Outpatient (CLI) | payer OTHER | LOC: M WHC 08:31 | PROVIDERS: ATTEND Obstetrics & Gynecology | DX: Z36.2 Encounter for other antenatal screening follow-up (principal); Z3A.25 25 weeks gestation of pregnancy ==

== ENCOUNTER → 2022-07-27 | Outpatient (CLI) | payer OTHER | LOC: M LAB 07:23 | PROVIDERS: ATTEND Obstetrics & Gynecology | DX: R73.09 Other abnormal glucose (principal) ==

== ENCOUNTER → 2022-08-21 | Outpatient (CLI) | payer OTHER, SELFPAY | LOC: M WHC 07:08 | PROVIDERS: ATTEND Advanced Practice Midwife | DX: Z34.92 Encounter for supervision of normal pregnancy, unspecified, second trimester (principal); Z36.2 Encounter for other antenatal screening follow-up; Z3A.30 30 weeks gestation of pregnancy ==

== ENCOUNTER → 2022-10-04 | Outpatient (REF) | payer OTHER | LOC: M SFHCWAGY 15:13 | PROVIDERS: ATTEND Specialist | DX: Z36.85 Encounter for antenatal screening for Streptococcus B (principal) ==

== ENCOUNTER → 2023-03-08 | Outpatient (REF) | payer OTHER ==
[~2023-03-08] MED LIST changes: +ACET325C5 PO; +OXYC1TAB23 PO; +VITA30004 PO
== END ==
LOC: M SFHCWAGY 13:09
PROVIDERS: ATTEND Nurse Practitioner Family
DX: Z12.4 Encounter for screening for malignant neoplasm of cervix (principal)
CPT/HCPCS: 87624; G0123

== ENCOUNTER → 2023-08-07 | Outpatient (CLI) | payer OTHER ==
[2023-08-07 14:16] LABS: HEMOGLOBIN A1c 5.4 % (4.0-6.0)
[2023-08-07 14:27] LABS: HCG, SERUM QUALITATIVE NEGATIVE (NEGATIVE)
[2023-08-07 14:30] LABS: ALBUMIN 3.9 G/DL (3.2-5.2); ALKALINE PHOSPHATASE 61 U/L (46-116); ALT/SGPT 18 U/L (7.0-40); AST/SGOT 12 U/L (<34); BILIRUBIN,TOTAL 0.5 MG/DL (0.3-1.2); BLOOD UREA NITROGEN 10 MG/DL (9-23); CALCIUM LEVEL 9.1 MG/DL (8.5-10.1); CARBON DIOXIDE LEVEL 29 MMOL/L (20-31); CHLORIDE LEVEL 107 MMOL/L (98-107); CREATININE FOR GFR 0.56 MG/DL (0.55-1.30); GLOMERULAR FILTRATION RATE > 60.0 (>60); GLUCOSE, FASTING 89 MG/DL (60-100); POTASSIUM SERUM 4.6 MMOL/L (3.5-5.1); SODIUM LEVEL 140 MMOL/L (136-145); TOTAL PROTEIN 6.4 G/DL (5.7-8.2)
== END ==
LOC: M PLALAB 09:06
PROVIDERS: ATTEND Nurse Practitioner Family
DX: Z30.011 Encounter for initial prescription of contraceptive pills (principal); E28.2 Polycystic ovarian syndrome

== ENCOUNTER → 2025-03-09 | Outpatient (CLI) | payer OTHER | LOC: M RAD 07:25 | PROVIDERS: ATTEND Nurse Practitioner Family | DX: E04.1 Nontoxic single thyroid nodule (principal) ==